=== PATIENT | male | born 1960 | race Caucasian/White ===

== ENCOUNTER → 2017-05-09 | Outpatient (CLI) | payer BC ==
--- NOTE | 2017-05-09 13:37 | US ---
EXAM DESCRIPTION: Venous,Lower Extremity LT CLINICAL HISTORY: 56 years, Male, LOCALIZED EDEMA pain COMPARISON: None. FINDINGS: Thrombus visualized in the left popliteal, peroneal and posterior tibial veins. These veins are not compressible and demonstrate spontaneous flow. The left common femoral and superficial femoral veins are patent. Left Greater saphenous vein patent IMPRESSION: Occlusive appearing deep venous thrombosis in the left popliteal, peroneal and posterior tibial veins Electronically signed by: Nasim Walsh MD 05/09/2017 1:36 PM CDT
== END | disposition home or self-care (01) ==
LOC: RAD 12:00
PROVIDERS: ATTEND Family Medicine
DX: R60.0 Localized edema (principal)

== ENCOUNTER → 2018-04-18 | Outpatient (CLI) | payer BC | LOC: GMAB 11:30 | PROVIDERS: ATTEND Family Medicine | DX: Z00.01 Encounter for general adult medical examination with abnormal findings (principal) ==

== ENCOUNTER 2018-05-18 08:30 | Emergency (ER) | payer BC ==
[2018-05-18 08:42] VITALS: TEMP 97.9
--- NOTE | 2018-05-18 08:46 | ED.PDOC ---
History of Present Illness - General Chief Complaint: Respiratory Problem Stated Complaint: shortness of breath Time Seen by Provider: 05/18/18 08:42 Source: patient, Vital Signs reviewed Additional Information: 57 YEAR OLD COMPLAINTS OF CHEST PAIN YESTERDAY THAT LASTED FOR 5 - 10 MIN ANTERIOR CHEST ASSOCIATED WITH SHORTNESS OF BREATH AGAIN AT NIGHT HE FELT HE WAS NOT GETTING ENOUGH AIR HE SLEEPS WITH A CPAP HE HAS HISTORY OF DVT LEFT LEG DIAGNOSED AN YEAR AGO HE HAS HISTORY OF CAD AND HAD A STENT SUPPORTED ANGIOPLASTY AT [facility] 3 YEARS AGO ( HIS FATHER AT AGE 49 FROM CAD ) HE HAS HYPERTENSION DISLIPIDEMIA AND IS OBESE - History of Present Illness Allergies/Adverse Reactions: Allergies NO KNOWN ALLERGY Allergy (Verified 05/18/18 08:42) Home Medications: Ambulatory Orders Aspirin [Rajendra Low Dose] 81 mg PO DAILY 05/18/18 Atorvastatin Calcium 40 mg PO DAILY 05/18/18 Ergocalciferol [Vitamin D] 50,000 unit PO WKLY 05/18/18 Esomeprazole Magnesium [Nexium] 20 mg PO BID 05/18/18 Furosemide [Lasix] 40 mg PO PRN 05/18/18 Glucosamine-Chondroitin [Cosamin Ds 500-400 mg] 2 cap PO DAILY 05/18/18 Lisinopril & Hydrochlorothiazi [Lisinopril/Hctz 20-12.5 mg] 1 tab PO DAILY 05/18 Magnesium Oxide (Laxative) [Schaefer] 1,000 mg PO DAILY 05/18/18 Metoprolol Succinate [Metoprolol Succinate ER] 12.5 mg PO DAILY 05/18/18 Naproxen [Naprosyn] 500 mg PO BID 05/18/18 Penhook-3 Fatty Acids [[place]ook-3 2100] 1 cap PO DAILY 05/18/18 Potassium Chloride [Micro-K] 10 meq PO PRN 05/18/18 Review of Systems - Review of Systems Constitutional: States: no symptoms reported EENTM: States: no symptoms reported Respiratory: States: see HPI Cardiology: States: see HPI Gastrointestinal/Abdominal: States: no symptoms reported Genitourinary: States: no symptoms reported Musculoskeletal: States: no symptoms reported Skin: States: no symptoms reported Neurological: States: no symptoms reported Endocrine: States: no symptoms reported Hematologic/Lymphatic: States: no symptoms reported Past Medical History (General) - Patient Medical History Hx Stroke: No Hx Cardiac Disorders: Yes - Stint Hx Hypertension: Yes Hx Diabetes: No - Vaccination History Hx Influenza Vaccination: No Hx Pneumococcal Vaccination: No - Social History Hx Tobacco Use: No Hx Chewing Tobacco Use: Yes Family Medical History - Family History Father Family History: Unknown Living Status: Unknown Physical Exam - Physical Exam General Appearance: Comfortable Eye Exam: bilateral normal Ears, Nose, Throat: hearing grossly normal, abnormal TM (R) Neck: non-tender, supple Respiratory: chest non-tender, lungs clear, normal breath sounds, no respiratory distress, no accessory muscle use Cardiovascular/Chest: normal peripheral pulses, regular rate, rhythm, no edema, no gallop, no JVD, no murmur Peripheral Pulses: radial,right: 2+, radial,left: 2+, femoral,right: 2+, femoral ,left: 2+ Gastrointestinal/Abdominal: normal bowel sounds, non tender, soft, no organomegaly, no pulsatile mass Back Exam: normal inspection, no CVA tenderness, no vertebral tenderness Extremity: normal range of motion, non-tender, normal inspection, no pedal edema Neurologic: life sciences manager II-XII nml as tested, no motor/sensory deficits, alert, normal mood/affect, oriented x 3 Skin Exam: normal color, warm/dry Lymphatic: no adenopathy Progress - Results/Orders Results/Orders: Laboratory Tests 05/18/18 05/18/18 08:58 08:58 WBC 8.7 RBC 4.63 L Hgb 14.0 Hct 41.2 L MCV 88.9 MCH 30.2 MCHC 34.0 RDW 14.3 Plt Count 238 MPV 7.7 Absolute Neuts (auto) 6.40 Absolute Lymphs (auto) 1.50 Absolute Monos (auto) 0.70 Absolute Eos (auto) 0.00 Absolute Basos (auto) 0.00 Neutrophils % 74.5 Lymphocytes % 17.2 L Monocytes % 7.5 Eosinophils % 0.5 L Basophils % 0.3 PT 11.2 INR 0.970 PTT (SP) 28.3 D-Dimer, Quantitative 1659 H* Sodium 141 Potassium 3.7 Chloride 107 Carbon Dioxide 26 Anion Gap 11.7 L BUN 24 H Creatinine 1.25 BUN/Creatinine Ratio 19.2 Random Glucose 106 H Serum Osmolality 285.7 Calcium 9.2 Magnesium 1.9 Creatine Kinase 241 H* CK-MB (CK-2) 7.7 H* CK-MB (CK-2) % 3.20 Troponin I 0.44 H* CT CHEST BILATERAL PE - EKG/XRAY/CT EKG: Sinus, nonspecific ST T wave Chg Comments: NO ST ELEVATION [place] CT Ordered: Yes - BILATERAL PE Departure - Departure Clinical Impression: Pulmonary embolism, NSTEMI (non-ST elevation myocardial infarction) Time of Disposition: 10:34 Disposition: Transfer to Hospital Departure Forms: ED Discharge - Pt. Copy, Patient Portal Self Enrollment Referrals: Sudhakar Guajardo MD [Primary Care Provider] - 1-2 Weeks Home Medications: Ambulatory Orders Aspirin [Rajendra Low Dose] 81 mg PO DAILY 05/18/18 Atorvastatin Calcium 40 mg PO DAILY 05/18/18 Ergocalciferol [Vitamin D] 50,000 unit PO WKLY 05/18/18 Esomeprazole Magnesium [Nexium] 20 mg PO BID 05/18/18 Furosemide [Lasix] 40 mg PO PRN 05/18/18 Glucosamine-Chondroitin [Cosamin Ds 500-400 mg] 2 cap PO DAILY 05/18/18 Lisinopril & Hydrochlorothiazi [Lisinopril/Hctz 20-12.5 mg] 1 tab PO DAILY 05/18 Magnesium Oxide (Laxative) [Schaefer] 1,000 mg PO DAILY 05/18/18 Metoprolol Succinate [Metoprolol Succinate ER] 12.5 mg PO DAILY 05/18/18 Naproxen [Naprosyn] 500 mg PO BID 05/18/18 Penhook-3 Fatty Acids [Penhook-3 2100] 1 cap PO DAILY 05/18/18 Potassium Chloride [Micro-K] 10 meq PO PRN 05/18/18 Transfer to Outside Facility - Transfer Information Accepting Provider:: DR VILLALOBOS Accepting Facility: [facility] Reason for Transfer: required specialist not available
--- NOTE | 2018-05-18 09:02 | RAD ---
EXAM: Chest,1 View CLINICAL INDICATION: Chest pain COMPARISON: There is no previous study for comparison. FINDINGS: A single view of the chest was obtained, which was repeated one time. The heart size is normal. The pulmonary vascularity is unremarkable. The lungs are clear. There is no consolidation, infiltrate, pleural effusion, or pneumothorax. IMPRESSION: No evidence of active pulmonary disease. Electronically signed by: Maicol Middleton MD 05/18/2018 9:00 AM CDT
[2018-05-18] MEDS ORDERED: HEPARIN SODIUM (PORCINE) 5,000 U/ML VIAL IV ONE (10:23)
--- NOTE | 2018-05-18 10:24 | CT ---
EXAM: CTA Chest CLINICAL INDICATION: Shortness of breath, abnormal D-dimer test COMPARISON: There is no previous study for comparison. TECHNIQUE: CTA of the chest was performed using contiguous axial postcontrast sections through the chest using 2.5 mm sections including 3-D reconstructions. This exam was performed according to our departmental dose-optimization program, which includes automated exposure control, adjustment of the mA and/or kV according to patient size and/or use of iterative reconstruction technique. Results: There are multiple filling defects within bilateral upper lobe, lower lobe, and right middle lobe pulmonary arteries consistent with pulmonary emboli. No saddle embolus is seen. There is no aortic dissection. RV/LV ratio is 1.5, consistent with right heart strain. There are no enlarged mediastinal or hilar lymph nodes. The visualized portions of the upper abdominal structures are unremarkable. The lungs are otherwise clear, except for a few areas of atelectasis. There is no pneumothorax. IMPRESSION: Multiple bilateral pulmonary emboli, with evidence of right heart strain. Findings telephoned to Dr. Glover at 10:22 AM central time on 05/18/2018. Electronically signed by: Maicol Middleton MD 05/18/2018 10:23 AM CDT
[2018-05-18] MEDS ORDERED: HEPARIN PREMIX 25,000 UNITS in PREMIX BAG 1 BAG IVS SCH (10:30)
[2018-05-18] MEDS ORDERED: HEPARIN PREMIX 500 ML ONE (10:40)
[2018-05-18 11:45] VITALS: BP 117/74; O2SAT 94
== END 2018-05-18 11:45 | disposition short-term general hospital (02) ==
LOC: ER 08:30
DX: I21.4 Non-ST elevation (NSTEMI) myocardial infarction (principal); I26.99 Other pulmonary embolism without acute cor pulmonale; I10 Essential (primary) hypertension; Z79.82 Long term (current) use of aspirin; Z79.899 Other long term (current) drug therapy
CPT/HCPCS: 36415; 71045; 71275; 80048; 82550; 82553; 84484; 85025; 85379; 85610; 85730; 93005; J1644

== ENCOUNTER → 2018-07-29 | Outpatient (CLI) | payer BC ==
--- NOTE | 2018-07-29 12:16 | CT ---
EXAM DESCRIPTION: Chest w/o Contrast : Computed Tomography. CLINICAL HISTORY: PULMONARY EMBOLISM . Multiple emboli seen on prior CTA chest. Also lung atelectasis. COMPARISON: CTA chest 05/18/2018. Abdominal pelvic CT scan on this visit. TECHNIQUE: Spiral-axial scans at 5 x 5 mm intervals through the lungs and thorax without IV contrast. 2.5 mm lung algorithm axial reconstructions. Coronal and sagittal 2.0 Mm reconstructions. Total Exam DLP: 943.53 mGy-cm. This exam was performed according to our departmental dose-optimization program which includes automated exposure control, adjustment of the mA and/or kV according to patient size and/or use of iterative reconstruction technique; to reduce radiation dose to as low as reasonably achievable (ALARA). FINDINGS: No infiltrates in the bilateral lungs or atelectasis. No abnormal nodules or masses. Bilateral scattered areas of focal pleural thickening with no calcification or effusion. No pneumothorax. Heterogeneous density of the thyroid gland. Evaluation of the soft tissues and pulmonary arteries limited due to lack of IV contrast. No soft tissue masses at the neck base, axilla. Included chest wall. No large soft tissue masses in the mediastinum or hilum. Small lymph nodes. Atherosclerotic calcifications of the great vessels and the aortic arch. Coronary artery calcifications. Minimal spondylosis in the included thoracic spine. No bony blastic or lytic lesions. IMPRESSION: Bilateral multifocal minimal pleural thickening without calcification. No nodules masses or infiltrates in the lungs. Lung atelectasis has resolved. Evaluation of the soft tissues and pulmonary arteries limited due to lack of IV contrast. Coronary artery calcifications and atherosclerotic calcifications of the aortic arch. Electronically signed by: Román Ward MD 07/29/2018 12:14 PM CDT
--- NOTE | 2018-07-29 12:49 | CT ---
EXAM DESCRIPTION: Abdomen/Pelvis w/o Contrast: Computed Tomography. CLINICAL HISTORY: THROMBOPHLEBITIS OF UNSPECIFIED DEEP VESSELS. COMPARISON: CT scan of the chest without IV contrast on the same visit. TECHNIQUE: Spiral-axial scans 5 x 5 mm intervals through the abdomen and pelvis without oral or IV contrast. Coronal and sagittal 2.0 mm reconstructions. Total Exam DLP: 1383.82mGy-cm. This exam was performed according to our departmental CT dose-optimization program which includes automated exposure control, adjustment of the mA and/or kV according to patient size and/or use of iterative reconstruction technique; to reduce radiation dose to as low as reasonably achievable (ALARA). FINDINGS: Liver, stomach, spleen, and adrenal glands: Stomach is negative. Solid organs are unremarkable. Pancreas, Gallbladder, and Ducts: Gallbladder visualized. Normal caliber of the duct. Minimal pancreatic steatosis. Kidneys and Ureters: Negative. Bilateral pararenal stranding is symmetric. Mesentery: Symmetric bilateral pararenal stranding. No free peritoneal air. No ascites. Aorta: Minimal atherosclerotic calcification. Small Bowel: Fluid and gas with no significant air-fluid levels are segmental distention. Terminal Ileum/Cecum: Decompressed. Small appendix. Normal density of the surrounding fat. Colon: Minimal redundancy in the distal sigmoid and the hepatic flexure. No complications. Small diverticula in the sigmoid. Pelvic Organs: Prostate gland abutting the base of the urinary bladder. Minimal calcification. No free fluid. Spine and Bony Pelvis: Narrowing bilateral L5-S1 foramina with posterior endplate hypertrophy. Minimal narrowing superior lateral joint spaces. Abdominal Wall/Back Soft Tissues: Umbilical hernia with neck measuring 3.0 x 2.6 cm. Hernia only contains mesentery with no bowel. No mesenteric edema. Small bilateral fatty inguinal hernias not containing bowel. IMPRESSION: Evaluation for thrombophlebitis limited by lack of IV contrast. Bilateral pararenal stranding is nonspecific finding. No radiodense stones or hydronephrosis in either kidney and no radiodense stones in the ureters. Normal CT appearance of the appendix. Small diverticula in the sigmoid colon without complications. Significant narrowing bilateral L5-S1 foramina. Umbilical hernia containing mesenteric fat and no bowel. No fatty edema. Electronically signed by: Román Ward MD 07/29/2018 12:48 PM CDT
== END ==
LOC: CT 08:00
PROVIDERS: ATTEND Family Medicine
DX: I26.99 Other pulmonary embolism without acute cor pulmonale (principal); I70.0 Atherosclerosis of aorta; I25.10 Atherosclerotic heart disease of native coronary artery without angina pectoris; K42.9 Umbilical hernia without obstruction or gangrene; N18.2 Chronic kidney disease, stage 2 (mild); I80.202 Phlebitis and thrombophlebitis of unspecified deep vessels of left lower extremity

== ENCOUNTER → 2019-07-28 | Outpatient (CLI) | payer BC | LOC: GMAE 11:46 | PROVIDERS: ATTEND Family Medicine | DX: Z00.00 Encounter for general adult medical examination without abnormal findings (principal) ==

== ENCOUNTER → 2020-07-18 | Outpatient (CLI) | payer BC | LOC: GMAE 14:29 | PROVIDERS: ATTEND Family Medicine | DX: Z00.01 Encounter for general adult medical examination with abnormal findings (principal) ==